=== PATIENT | male | born 1970 | race Caucasian/White ===

== ENCOUNTER 2016-11-26 20:35 | Emergency (ER) | payer MEDICAID ==
--- NOTE | 2016-11-27 05:51 | ER ---
ADMIT: 11/26/2016 RM/LOC: ER [facility] MR#: [id number] [facility] [id number] [place], [place] [id number] FRANCOISE DRUMMOND [address] [place] [address] Emergency Room Report SEX: M AGE: 46 : 1970 DATE: 11/26/2016 The patient is a 46-year-old male, transported after the police were called for man who was falling down drunk. Exam remarkable for nontoxic, afebrile male with obvious occiput cephalhematoma abrasion. CT head and neck negative. Alcohol 291. Patient left in police custody. Bret Mcdaniel MD/ kate JOB #: [id number] CC: Bret Mcdaniel MD, Attending Physician Aakash Aquino MD, Family Physician Aakash Aquino MD
== END 2016-11-26 21:40 | disposition home or self-care (01) ==
LOC: ER 20:35
DX: S09.90XA Unspecified injury of head, initial encounter (principal); F10.129 Alcohol abuse with intoxication, unspecified; W19.XXXA Unspecified fall, initial encounter